=== PATIENT | female | born 1985 | race Hispanic/Latino ===

== ENCOUNTER → 2020-01-26 11:25 | Outpatient (CLI) | payer OTHER, SELFPAY ==
--- NOTE | 2020-01-26 | DI.MRI.S_ITS ---
PROCEDURE: MR ANKLE RT WO CON INDICATIONS: Other synovitis and tenosynovitis, right ankle TECHNIQUE: Noncontrast sagittal T1 spin echo and T2 fast spin echo with fat saturation, axial proton density fast spin echo and T2 fast spin echo with fat saturation, coronal T1 spin echo and T2 fast spin echo with fat saturation through the ankle/hindfoot. COMPARISON: None. FINDINGS: Image quality: Excellent. Bones and joints: No bone marrow contusions or fractures. There are areas of stippled T2 hyperintensity seen throughout the hindfoot and midfoot. In particular, focal marrow edema present within the central calcaneus image 05/16. This could reflect very early or mild complex regional pain syndrome however the actual significance of this appearance is unclear. No hindfoot coalitions. No osteochondral injuries of the talar dome. No pathologic joint effusions. Medial structures: Posterior tibialis intact. There is minimal posterior tibialis tenosynovitis Flexor digitorum longus intact. Flexor hallucis longus tendon intact. The posterior tibial neurovascular bundle appears normal within the tarsal tunnel, without extrinsic mass effect. Deltoid ligament complex appears intact. The spring ligament appears intact. Lateral structures: Anterior talofibular ligament intact. Calcaneofibular ligament intact. Posterior talofibular ligament intact. Anterior and posterior tibiofibular ligaments appear intact, as is the intermalleolar ligament. Tibiofibular syndesmosis is normal in width at 2 mm or less. Peroneus longus and brevis tendons demonstrate normal location and morphology. Bony peroneal tubercle and retrotrochlear prominence are normal in size. Sinus tarsi demonstrates normal fatty signal, without edema, fibrosis, or cyst formation. Anterior structures: Tibialis anterior intact. Extensor hallucis longus intact. Extensor digitorum longus tendon intact. Dorsal talonavicular ligament appears intact. Posterior and plantar structures: Achilles tendon is intact. Medial and lateral bands of the plantar fascia intact. No abductor digiti quinti muscle atrophy to suggest Allen neuropathy. IMPRESSION: Mild posterior tibialis tenosynovitis Ill-defined stippled mild diffuse marrow signal changes as detailed above raising the possibility of early or mild complex regional pain syndrome (such as reflex sympathetic dystrophy) however, technically nonspecific appearance. Dictated by: Omar Gray M.D. on 01/26/2020 at 14:34 Approved by: Omar Gray M.D. on 01/26/2020 at 14:43
== END ==
PROVIDERS: Referring Provider Podiatrist; Visit Provider Podiatrist
DX: M65.871 Other synovitis and tenosynovitis, right ankle and foot (principal); M79.671 Pain in right foot; M25.471 Effusion, right ankle; R26.2 Difficulty in walking, not elsewhere classified
CPT/HCPCS: 73721